=== PATIENT | female | born 1950 | race Caucasian/White ===

== ENCOUNTER 2016-10-16 18:10 | Emergency (ER) | payer MEDICARE ==
[~2016-10-16 18:10] MED LIST: DICYCLOMINE HCL20 MG PO; LIPITOR TAB 2020 MG PO; LISINOPRIL-HCT1 EAC1 PO; MELOXICAM7.5 MG PO; METFORMIN HCL500 MG PO; PANTOPRAZOLE SO40 MG PO; TYLENOL WITH C1 EACH PO
[2016-10-16 20:13] LABS: HEMOGLOBIN 12.7 gm/dl (12.3-15.3); RED BLOOD COUNT 3.7 M/UL (4.00-5.10); WHITE BLOOD COUNT 18.3 K/UL (4.5-11.0)
[2016-10-16 20:32] LABS: BUN/CREATININE RATIO 16 (0-10)
== END 2016-10-17 08:55 ==
LOC: ER1 18:10
PROVIDERS: Emergency Medicine
DX: J44.1 Chronic obstructive pulmonary disease with (acute) exacerbation (principal); E11.9 Type 2 diabetes mellitus without complications; I10 Essential (primary) hypertension; E78.00 Pure hypercholesterolemia, unspecified; I71.4 Abdominal aortic aneurysm, without rupture
CPT/HCPCS: 36415; 36600; 71010; 80053; 81001; 82550; 82553; 82803; 83605; 83690; 83874; 83880; 84484; 85025; 85610; 85730; 87040; 87086; 93005; 94664; 96361; 96374; 99285; J2930; J7030; J7050; Q9963

== ENCOUNTER 2020-05-06 12:39 | Emergency (ER) | payer MEDICARE ==
[~2020-05-06 12:39] MED LIST changes: +ALENDRONATE SOD70 MG PO; +DIFLUCAN150 MG PO; +HYDROXYCHLOROQ200 MG PO; +NEURONTIN400 MG PO; +OMEPRAZOLE20 M1 PO; +OMNICEF 300 MG300 MG PO; +PRINIVIL5 MG PO; +ZOFRAN ODT 4 MG4 MG SL
[2020-05-06 15:22] LABS: HEMOGLOBIN 9.3 gm/dl (12.3-15.3); RED BLOOD COUNT 2.79 M/UL (4.00-5.10)
== END 2020-05-06 18:15 | disposition home or self-care (01) ==
LOC: ER1 12:39
PROVIDERS: Emergency Medicine
DX: C34.91 Malignant neoplasm of unspecified part of right bronchus or lung (principal); I71.4 Abdominal aortic aneurysm, without rupture; I73.9 Peripheral vascular disease, unspecified; J44.9 Chronic obstructive pulmonary disease, unspecified; I11.0 Hypertensive heart disease with heart failure; I50.9 Heart failure, unspecified; E11.9 Type 2 diabetes mellitus without complications; Z20.828 Contact with and (suspected) exposure to other viral communicable diseases
CPT/HCPCS: 75635; 80053; 81001; 82550; 82553; 83605; 83690; 83735; 83874; 84100; 84484; 85025; 85730; 87040; 87086; 99284; Q9967; U0002

== ENCOUNTER → 2020-08-25 | Outpatient (CLI) | payer MEDICARE | LOC: EXRD 08:19 | DX: I71.4 Abdominal aortic aneurysm, without rupture (principal) | CPT/HCPCS: 93979 ==

== ENCOUNTER → 2020-11-24 | Outpatient (CLI) | payer MEDICARE ==
[2020-11-24 10:01] LABS: HEMOGLOBIN 10.5 gm/dl (12.3-15.3); RED BLOOD COUNT 3.24 M/UL (4.00-5.10); WHITE BLOOD COUNT 8.1 K/UL (4.5-11.0)
== END ==
LOC: CT 09:21
PROVIDERS: Internal Medicine Hematology & Oncology
DX: Z01.89 Encounter for other specified special examinations (principal); C85.82 Other specified types of non-Hodgkin lymphoma, intrathoracic lymph nodes; C34.11 Malignant neoplasm of upper lobe, right bronchus or lung; D64.9 Anemia, unspecified
CPT/HCPCS: 36415; 71260; 80053; 83615; 85027; Q9965

== ENCOUNTER → 2021-07-01 | Outpatient (CLI) | payer MEDICARE ==
[~2021-07-01] VITALS: Ht 154.9 cm; Wt 55.3 kg
== END ==
LOC: EROP 10:48
DX: U07.1 COVID-19 (principal); Z23 Encounter for immunization; E11.9 Type 2 diabetes mellitus without complications; I25.10 Atherosclerotic heart disease of native coronary artery without angina pectoris; I10 Essential (primary) hypertension
CPT/HCPCS: M0247; Q0247

== ENCOUNTER → 2021-08-20 | Outpatient (CLI) | payer MEDICARE | LOC: HEART 5 11:24 | DX: J44.9 Chronic obstructive pulmonary disease, unspecified (principal) | CPT/HCPCS: 94060; 94729 ==

== ENCOUNTER → 2021-12-02 | Day surgery (SDC) | payer MEDICARE ==
[~2021-12-02] MED LIST changes: +BREO ELLIPTA 11 EACH INH; +BREZTRI AEROS10.7 GM INH; +GLUCOTROL XL2.5 MG PO; +METOPROLOL SUCC25 MG PO; +OMEPRAZOLE40 MG PO; +PROAIR DIGIHAL90 MCG INH; +REMERON15 MG PO; +SPIRIVA18 MCG INH; +VITAMIN B12
== END | disposition home or self-care (01) ==
LOC: OR 09:30
DX: R04.2 Hemoptysis (principal); J98.19 Other pulmonary collapse; R91.8 Other nonspecific abnormal finding of lung field; J44.9 Chronic obstructive pulmonary disease, unspecified; R09.02 Hypoxemia; K21.9 Gastro-esophageal reflux disease without esophagitis; I10 Essential (primary) hypertension; E78.00 Pure hypercholesterolemia, unspecified; M81.0 Age-related osteoporosis without current pathological fracture; M06.9 Rheumatoid arthritis, unspecified; E10.9 Type 1 diabetes mellitus without complications; Z87.891 Personal history of nicotine dependence; Z85.118 Personal history of other malignant neoplasm of bronchus and lung; Z79.899 Other long term (current) drug therapy
CPT/HCPCS: 82962; J2001; J2704